=== PATIENT | female | born 1930 | race African-American/Black ===

== ENCOUNTER 2018-08-17 12:47 | Inpatient (IN) | payer MEDICARE ==
[~2018-08-17] VITALS: Ht 160 cm; Wt 54.5 kg
[~2018-08-17 12:47] MED LIST: CLOP75 PO; LABE5VIA3 IVP; METO50 PO; MOM30 PO; NS1000 IV; PANT40TA25 PO; RIVA10 PO; SIMV-260 PO; SULF-168 PO; [UNRECOGNIZED DRUG - CODE] IV
[2018-08-17 13:08] LABS: GLUCOSE,POINT OF CARE 86 MG/DL (70-110)
[2018-08-17] MEDS ORDERED: LOSA50TA25 PO (13:17)
[2018-08-17] MEDS ORDERED: MIRT15 PO (13:17)
[2018-08-17] MEDS ORDERED: FURO40 PO (13:17)
[2018-08-17] MEDS ORDERED: DILT120C48 PO (13:17)
[2018-08-17] MEDS ORDERED: SOTA80 PO (13:17)
[2018-08-17 14:25] LABS: BASOPHILS % (AUTO) 0.9 % (0.0-2.0); EOSINOPHILS % (AUTO) 1.2 % (1.0-6.0); HEMATOCRIT 38.9 % (36-46); HEMOGLOBIN 12.5 g/dL (12.0-16.0); LYMPHOCYTES # (AUTO) 1.1 K/uL (1.0-4.8); LYMPHOCYTES % (AUTO) 25.1 % (22.0-44.0); MEAN CORPUSCULAR HEMOGLOBIN 27.7 pg (26.0-34.0); MEAN CORPUSCULAR VOLUME 87 fL (80-100); MONOCYTES # (AUTO) 0.4 K/uL (0.1-1.0); MONOCYTES % (AUTO) 9.5 % (2.0-9.0); NEUTROPHILS # (AUTO) 2.8 K/uL (1.8-7.7); NEUTROPHILS % (AUTO) 63.3 % (40.0-70.0); PLATELET COUNT (AUTO) 131 K/uL (150-450)
[2018-08-17 14:35] LABS: ANION GAP 10 mmol/L (8-16); CALCIUM, TOTAL 9.4 mg/dL (8.8-10.5); CARBON DIOXIDE 27 mmol/L (22-29); CHLORIDE 106 mmol/L (98-107); CREATININE 1.02 mg/dL (0.60-1.30); GLUCOSE,RANDOM 77 mg/dL (70-110); SODIUM SERUM 143 mmol/L (136-145); UREA NITROGEN, BLOOD 14 mg/dL (7-18)
[2018-08-17 14:36] LABS: GLOMERULAR FILTR. RATE CALC > 60 mL/min (>60)
[2018-08-17 14:47] LABS: B-TYPE NATRIURETIC PEPTIDE 297 pg/mL (0-100)
[2018-08-17 15:00] LABS: ALANINE AMINOTRANSFERASE 13 U/L (12-78); ALBUMIN 3.4 g/dL (3.4-5.0); ALKALINE PHOSPHATASE 91 U/L (46-116); ASPARTATE AMINOTRANSFERASE 23 U/L (15-37); BILIRUBIN,TOTAL 0.6 mg/dL (0.1-1.0); CREATINE KINASE, TOTAL ONLY 83 U/L (26-192); TOTAL PROTEIN, SERUM 7.6 g/dL (6.4-8.2)
[2018-08-17 15:03] LABS: APPEARANCE,URINE CLOUDY (CLEAR); BILIRUBIN,URINE NEGATIVE (NEGATIVE); GLUCOSE, URINE (UA) NEGATIVE (NEGATIVE); KETONES,URINE TRACE mg/dL (NEGATIVE); LEUKOCYTE ESTERASE ,URINE NEGATIVE (NEGATIVE); NITRATE,URINE NEGATIVE (NEGATIVE); OCCULT BLOOD,URINE NEGATIVE (NEGATIVE); PH,URINE 6.5 (5.0-8.0); PROTEIN,URINE NEGATIVE (NEGATIVE)
[2018-08-17] MEDS ORDERED: 0.9% SODIUM CHLORIDE 10 ML SYRINGE IVP PRN (15:30)
[2018-08-17] MEDS ORDERED: ONDANSETRON HCL 4 MG/2 ML VIAL IVP PRN (15:30)
[2018-08-17] MEDS ORDERED: ACETAMINOPHEN 325 MG TABLET PO PRN ×2 (15:30→15:45)
[2018-08-17] MEDS ORDERED: ALBUTEROL SULFATE 2.5 MG/0.5 ML NEB SOLUTION NEB PRN (15:45)
[2018-08-17] MEDS ORDERED: MAGNESIUM HYDROXIDE SUSPENSION 30 ML UDCUP PO PRN (15:45)
[2018-08-17] MEDS ORDERED: ASPIRIN 325 MG TABLET PO SCH (15:45)
[2018-08-17] MEDS: AmLODIPine BESYLATE 10 MG TABLET PO SCH (16:17)
[2018-08-17] MEDS: ATORVASTATIN CALCIUM 40 MG TABLET PO SCH (16:17)
[2018-08-17 17:06] LABS: PROTHROMBIN TIME 10.7 SEC (9.4-11.6)
[2018-08-17 17:22] VITALS: BP 163/95
[2018-08-17] MEDS ORDERED: HEPARIN SODIUM,PORCINE 5,000 UNITS/ML VIAL IVP ONE (17:30)
[2018-08-17] MEDS ORDERED: HEPARIN SODIUM,PORCINE 5,000 UNITS/ML VIAL IVP PRN (17:30)
[2018-08-17] MEDS: HEPARIN SODIUM 25000 UNITS/D5W 250 ML IV PRN (18:31)
[2018-08-17 19:34] VITALS: BP 147/74
[2018-08-17] MEDS: DOCUSATE SODIUM 100 MG CAPSULE PO SCH (20:04)
[2018-08-17] MEDS ORDERED: HEPARIN SODIUM,PORCINE 5,000 UNITS/ML VIAL SQ SCH (21:00)
[2018-08-17 23:35] VITALS: BP 113/51
[2018-08-18 05:07] VITALS: BP 119/94
[2018-08-18 08:09] VITALS: BP 139/73
[2018-08-18] MEDS: ATORVASTATIN CALCIUM 40 MG TABLET PO SCH (08:50)
[2018-08-18] MEDS: DOCUSATE SODIUM 100 MG CAPSULE PO SCH ×2 (08:50→21:00)
[2018-08-18] MEDS: AmLODIPine BESYLATE 10 MG TABLET PO SCH (08:51)
[2018-08-18] MEDS: PANTOPRAZOLE SODIUM 40 MG DR TABLET PO SCH (08:51)
[2018-08-18] MEDS ORDERED: *CLINICAL-WARFARIN SODIUM DOSING CLINICAL ONE (11:15)
[2018-08-18 11:30] VITALS: BP 129/60
[2018-08-18] MEDS ORDERED: WARFARIN SODIUM-INR 2.0-3.0-RX DOSING PER PROTOCOL PO PRN (11:30)
[2018-08-18 16:13] VITALS: BP 137/60
[2018-08-18] MEDS ORDERED: WARFARIN SODIUM 5 MG TABLET PO SCH (17:00)
[2018-08-18 20:00] VITALS: BP 123/75
[2018-08-19 00:22] VITALS: BP 127/61
[2018-08-19] MEDS: HEPARIN SODIUM 25000 UNITS/D5W 250 ML IV PRN ×3 (01:15→23:45)
[2018-08-19 04:12] VITALS: BP 101/53
[2018-08-19 07:31] VITALS: BP 117/75
[2018-08-19 08:58] LABS: BASOPHILS % (AUTO) 0.6 % (0.0-2.0); EOSINOPHILS % (AUTO) 1.2 % (1.0-6.0); HEMATOCRIT 38.1 % (36-46); HEMOGLOBIN 12.6 g/dL (12.0-16.0); LYMPHOCYTES # (AUTO) 1.2 K/uL (1.0-4.8); LYMPHOCYTES % (AUTO) 25.8 % (22.0-44.0); MEAN CORPUSCULAR HEMOGLOBIN 27.9 pg (26.0-34.0); MEAN CORPUSCULAR HGB CONC 33.2 G/dL (31.0-37.0); MEAN CORPUSCULAR VOLUME 84 fL (80-100); MONOCYTES # (AUTO) 0.5 K/uL (0.1-1.0); MONOCYTES % (AUTO) 11.4 % (2.0-9.0); NEUTROPHILS # (AUTO) 2.9 K/uL (1.8-7.7); PLATELET COUNT (AUTO) 141 K/uL (150-450); RED BLOOD CELL COUNT(AUTO) 4.54 MIL/uL (4.00-5.20); RED CELL DISTRIBUTION WIDTH 14.6 % (11.5-14.5)
[2018-08-19] MEDS: AmLODIPine BESYLATE 10 MG TABLET PO SCH (09:04)
[2018-08-19] MEDS: PANTOPRAZOLE SODIUM 40 MG DR TABLET PO SCH (09:04)
[2018-08-19] MEDS: DOCUSATE SODIUM 100 MG CAPSULE PO SCH ×2 (09:04→23:36)
[2018-08-19] MEDS: ATORVASTATIN CALCIUM 40 MG TABLET PO SCH (09:05)
[2018-08-19 09:09] LABS: INR 1.1 (0.9-1.1); PROTHROMBIN TIME 11.5 SEC (9.4-11.6)
[2018-08-19 09:35] LABS: CALCIUM, TOTAL 8.9 mg/dL (8.8-10.5); CREATININE 1.2 mg/dL (0.60-1.30); POTASSIUM 3.8 mmol/L (3.5-5.1)
[2018-08-19 11:06] VITALS: BP 110/65
[2018-08-19 15:28] VITALS: BP 146/68
[2018-08-19] MEDS: HEPARIN SODIUM,PORCINE 5,000 UNITS/ML VIAL IVP PRN ×2 (16:16→23:40)
[2018-08-19] MEDS ORDERED: WARFARIN SODIUM 7.5 MG TABLET PO SCH (17:00)
[2018-08-19 23:48] VITALS: BP 127/64
[2018-08-20 06:42] LABS: INR 1.2 (0.9-1.1); PROTHROMBIN TIME 12.5 SEC (9.4-11.6)
[2018-08-20] MEDS: AmLODIPine BESYLATE 10 MG TABLET PO SCH (08:23)
[2018-08-20] MEDS: PANTOPRAZOLE SODIUM 40 MG DR TABLET PO SCH (08:23)
[2018-08-20] MEDS: DOCUSATE SODIUM 100 MG CAPSULE PO SCH ×2 (08:23→20:36)
[2018-08-20] MEDS: ATORVASTATIN CALCIUM 40 MG TABLET PO SCH (08:23)
[2018-08-20 08:27] VITALS: BP 143/72
[2018-08-20] MEDS: HEPARIN SODIUM 25000 UNITS/D5W 250 ML IV PRN ×2 (08:29→15:44)
[2018-08-20 12:00] VITALS: BP 130/73
[2018-08-20 16:10] VITALS: BP 126/65
[2018-08-20] MEDS: WARFARIN SODIUM 5 MG TABLET PO SCH (18:14)
[2018-08-20 19:21] VITALS: BP 129/58
[2018-08-21 05:05] VITALS: BP 128/74
[2018-08-21 06:54] LABS: BASOPHILS % (AUTO) 0.7 % (0.0-2.0); EOSINOPHILS % (AUTO) 1.1 % (1.0-6.0); HEMATOCRIT 39.8 % (36-46); HEMOGLOBIN 13.4 g/dL (12.0-16.0); LYMPHOCYTES # (AUTO) 1.3 K/uL (1.0-4.8); LYMPHOCYTES % (AUTO) 26.8 % (22.0-44.0); MEAN CORPUSCULAR HEMOGLOBIN 28.5 pg (26.0-34.0); MEAN CORPUSCULAR HGB CONC 33.6 G/dL (31.0-37.0); MEAN CORPUSCULAR VOLUME 85 fL (80-100); MONOCYTES # (AUTO) 0.6 K/uL (0.1-1.0); MONOCYTES % (AUTO) 11.9 % (2.0-9.0); NEUTROPHILS # (AUTO) 2.8 K/uL (1.8-7.7); NEUTROPHILS % (AUTO) 59.5 % (40.0-70.0); PLATELET COUNT (AUTO) 149 K/uL (150-450); RED CELL DISTRIBUTION WIDTH 14.6 % (11.5-14.5)
[2018-08-21 07:08] LABS: CREATININE 1.13 mg/dL (0.60-1.30); POTASSIUM 4.2 mmol/L (3.5-5.1)
[2018-08-21 07:14] LABS: INR 1.9 (0.9-1.1); PROTHROMBIN TIME 19.6 SEC (9.4-11.6)
[2018-08-21 07:26] VITALS: BP 136/70
[2018-08-21] MEDS: DOCUSATE SODIUM 100 MG CAPSULE PO SCH ×2 (08:09→20:25)
[2018-08-21] MEDS: PANTOPRAZOLE SODIUM 40 MG DR TABLET PO SCH (08:09)
[2018-08-21] MEDS: ATORVASTATIN CALCIUM 40 MG TABLET PO SCH (08:09)
[2018-08-21] MEDS: AmLODIPine BESYLATE 10 MG TABLET PO SCH (08:09)
[2018-08-21 12:22] VITALS: BP 119/53
[2018-08-21 15:24] VITALS: BP 123/63
[2018-08-21] MEDS: WARFARIN SODIUM 5 MG TABLET PO SCH (18:11)
[2018-08-21 19:38] VITALS: BP 134/78
[2018-08-21 23:26] VITALS: BP 135/77
[2018-08-22 03:57] VITALS: BP 153/74
[2018-08-22 07:32] LABS: BASOPHILS % (AUTO) 0.7 % (0.0-2.0); EOSINOPHILS % (AUTO) 1.7 % (1.0-6.0); HEMATOCRIT 40.2 % (36-46); HEMOGLOBIN 13.3 g/dL (12.0-16.0); LYMPHOCYTES # (AUTO) 0.9 K/uL (1.0-4.8); MEAN CORPUSCULAR HGB CONC 33.2 G/dL (31.0-37.0); MEAN CORPUSCULAR VOLUME 84 fL (80-100); MONOCYTES # (AUTO) 0.5 K/uL (0.1-1.0); MONOCYTES % (AUTO) 11.3 % (2.0-9.0); NEUTROPHILS # (AUTO) 3.1 K/uL (1.8-7.7); NEUTROPHILS % (AUTO) 67.3 % (40.0-70.0); PLATELET COUNT (AUTO) 138 K/uL (150-450); RED BLOOD CELL COUNT(AUTO) 4.77 MIL/uL (4.00-5.20)
[2018-08-22 07:44] VITALS: BP 130/60
[2018-08-22 07:46] LABS: INR 3.2 (0.9-1.1); PROTHROMBIN TIME 32.4 SEC (9.4-11.6)
[2018-08-22 07:50] LABS: CALCIUM, TOTAL 9.4 mg/dL (8.8-10.5); CREATININE 1.15 mg/dL (0.60-1.30)
[2018-08-22] MEDS: DOCUSATE SODIUM 100 MG CAPSULE PO SCH ×2 (08:16→20:39)
[2018-08-22] MEDS: PANTOPRAZOLE SODIUM 40 MG DR TABLET PO SCH (08:16)
[2018-08-22] MEDS: ATORVASTATIN CALCIUM 40 MG TABLET PO SCH (08:16)
[2018-08-22] MEDS: AmLODIPine BESYLATE 10 MG TABLET PO SCH (08:16)
[2018-08-22] MEDS: HEPARIN SODIUM,PORCINE 5,000 UNITS/ML VIAL IVP PRN (08:20)
[2018-08-22] MEDS: HEPARIN SODIUM 25000 UNITS/D5W 250 ML IV PRN (08:23)
[2018-08-22 11:37] VITALS: BP 123/68
[2018-08-22] MEDS ORDERED: *CLINICAL-WARFARIN SODIUM DOSING CLINICAL ONE (15:00)
[2018-08-22 15:40] VITALS: BP 135/67
[2018-08-22 20:18] VITALS: BP 152/71
[2018-08-23 00:02] VITALS: BP 115/52
[2018-08-23 04:24] VITALS: BP 114/76
[2018-08-23 07:23] VITALS: BP 128/55
[2018-08-23 08:03] LABS: BASOPHILS % (AUTO) 0.4 % (0.0-2.0); EOSINOPHILS % (AUTO) 1.6 % (1.0-6.0); HEMATOCRIT 40.5 % (36-46); HEMOGLOBIN 13.4 g/dL (12.0-16.0); LYMPHOCYTES # (AUTO) 1.6 K/uL (1.0-4.8); LYMPHOCYTES % (AUTO) 29.2 % (22.0-44.0); MEAN CORPUSCULAR HEMOGLOBIN 27.9 pg (26.0-34.0); MEAN CORPUSCULAR HGB CONC 33.1 G/dL (31.0-37.0); MEAN CORPUSCULAR VOLUME 84 fL (80-100); MONOCYTES # (AUTO) 0.8 K/uL (0.1-1.0); MONOCYTES % (AUTO) 13.7 % (2.0-9.0); NEUTROPHILS # (AUTO) 3.1 K/uL (1.8-7.7); NEUTROPHILS % (AUTO) 55.1 % (40.0-70.0); PLATELET COUNT (AUTO) 148 K/uL (150-450); RED BLOOD CELL COUNT(AUTO) 4.81 MIL/uL (4.00-5.20)
[2018-08-23] MEDS: ATORVASTATIN CALCIUM 40 MG TABLET PO SCH (08:09)
[2018-08-23] MEDS: PANTOPRAZOLE SODIUM 40 MG DR TABLET PO SCH (08:09)
[2018-08-23] MEDS: DOCUSATE SODIUM 100 MG CAPSULE PO SCH ×2 (08:09→20:16)
[2018-08-23] MEDS: AmLODIPine BESYLATE 10 MG TABLET PO SCH (08:09)
[2018-08-23 08:10] LABS: INR 3.5 (0.9-1.1); PROTHROMBIN TIME 35.2 SEC (9.4-11.6)
[2018-08-23 08:13] LABS: CALCIUM, TOTAL 9.2 mg/dL (8.8-10.5); CREATININE 1.17 mg/dL (0.60-1.30); POTASSIUM 4.4 mmol/L (3.5-5.1)
[2018-08-23 11:52] VITALS: BP 107/60
[2018-08-23] MEDS ORDERED: WARFARIN SODIUM 2.5 MG TABLET PO SCH (17:00)
[2018-08-23 19:42] VITALS: BP 147/91
[2018-08-24 00:30] VITALS: BP 125/72
[2018-08-24 05:57] LABS: INR 2.5 (0.9-1.1)
[2018-08-24 07:31] VITALS: BP 141/87
[2018-08-24] MEDS: AmLODIPine BESYLATE 10 MG TABLET PO SCH (08:01)
[2018-08-24] MEDS: DOCUSATE SODIUM 100 MG CAPSULE PO SCH (08:01)
[2018-08-24] MEDS: ATORVASTATIN CALCIUM 40 MG TABLET PO SCH (08:02)
[2018-08-24] MEDS: PANTOPRAZOLE SODIUM 40 MG DR TABLET PO SCH (08:02)
[2018-08-24] MEDS ORDERED: FURO40 PO (13:59)
[2018-08-24] MEDS ORDERED: ATOR40TA28 PO ×2 (14:00→16:56)
[2018-08-24] MEDS ORDERED: AMLO-512 PO ×2 (14:00→16:56)
[2018-08-24] MEDS ORDERED: WARF2 PO (14:01)
[2018-08-24 15:50] VITALS: BP 148/85
[2018-08-24] MEDS ORDERED: WARF5 PO (16:56)
[2018-08-24] MEDS ORDERED: CIPR-278 PO ×3 (16:59→17:01)
[2018-08-24] MEDS ORDERED: WARFARIN SODIUM 2 MG TABLET PO SCH (17:00)
[2018-08-24 17:29] LABS: APPEARANCE,URINE CLOUDY (CLEAR); BILIRUBIN,URINE NEGATIVE (NEGATIVE); GLUCOSE, URINE (UA) NEGATIVE (NEGATIVE); KETONES,URINE TRACE mg/dL (NEGATIVE); LEUKOCYTE ESTERASE ,URINE LARGE (NEGATIVE); NITRATE,URINE NEGATIVE (NEGATIVE); OCCULT BLOOD,URINE NEGATIVE (NEGATIVE); PROTEIN,URINE TRACE (NEGATIVE)
[2018-08-24 17:48] LABS: BACTERIA,URINE Moderate /HPF (None Seen); RBC,URINE None Seen /HPF (0-2); SQUAMOUS EPITHELIAL CELL,UR Few /LPF (None Seen)
== END 2018-08-24 18:50 | disposition home or self-care (01) | DRG 282 ==
LOC: EMS 12:48 → 5S 16:04
PROVIDERS: ADMIT Internal Medicine; ATTEND Internal Medicine
DX: I21.4 Non-ST elevation (NSTEMI) myocardial infarction (principal); I49.5 Sick sinus syndrome; I11.9 Hypertensive heart disease without heart failure; F03.90 Unspecified dementia, unspecified severity, without behavioral disturbance, psychotic disturbance, mood disturbance, and anxiety; I48.91 Unspecified atrial fibrillation; I51.3 Intracardiac thrombosis, not elsewhere classified; Z79.01 Long term (current) use of anticoagulants; Z82.49 Family history of ischemic heart disease and other diseases of the circulatory system; Z86.73 Personal history of transient ischemic attack (TIA), and cerebral infarction without residual deficits; Z95.0 Presence of cardiac pacemaker
CPT/HCPCS: 51701; 82271; 87086; 92610; 93005; 93306; 97110; 97116; 97162; 97530; G0378; J1644

== ENCOUNTER 2018-12-15 19:02 | Emergency (ER) | payer MEDICARE ==
[~2018-12-15] VITALS: Ht 167.6 cm; Wt 62.0 kg
[~2018-12-15 19:02] MED LIST changes: +AMLO-512 PO; +ATOR40TA28 PO; +CIPR-278 PO; -CLOP75 PO; +FURO40 PO; -LABE5VIA3 IVP; -METO50 PO; +MIRT15 PO; -MOM30 PO; -NS1000 IV; -PANT40TA25 PO; -RIVA10 PO; -SIMV-260 PO; -SULF-168 PO; +WARF5 PO; -[UNRECOGNIZED DRUG - CODE] IV
[2018-12-15] MEDS ORDERED: DILT120C48 PO (19:11)
[2018-12-15] MEDS ORDERED: RIVA20TA PO (19:11)
[2018-12-15] MEDS ORDERED: SOTA160T PO (19:11)
[2018-12-15] MEDS ORDERED: ATOR20TA86 PO (19:11)
[2018-12-15] MEDS ORDERED: CLOP75TA17 PO (19:11)
[2018-12-15] MEDS ORDERED: LOSA50TA64 PO (19:11)
[2018-12-15 19:43] LABS: BASOPHILS % (AUTO) 0.9 % (0.0-2.0); HEMATOCRIT 39.6 % (36-46); HEMOGLOBIN 12.8 g/dL (12.0-16.0); LYMPHOCYTES # (AUTO) 0.5 K/uL (1.0-4.8); LYMPHOCYTES % (AUTO) 18.3 % (22.0-44.0); MEAN CORPUSCULAR HEMOGLOBIN 26.5 pg (26.0-34.0); MEAN CORPUSCULAR HGB CONC 32.4 G/dL (31.0-37.0); MEAN CORPUSCULAR VOLUME 82 fL (80-100); MONOCYTES # (AUTO) 0.2 K/uL (0.1-1.0); NEUTROPHILS % (AUTO) 72.8 % (40.0-70.0); PLATELET COUNT (AUTO) 135 K/uL (150-450); RED BLOOD CELL COUNT(AUTO) 4.85 MIL/uL (4.00-5.20); RED CELL DISTRIBUTION WIDTH 14.7 % (11.5-14.5)
[2018-12-15 19:51] LABS: ANION GAP 10 mmol/L (8-16); CALCIUM, TOTAL 10.3 mg/dL (8.8-10.5); CARBON DIOXIDE 25 mmol/L (22-29); CHLORIDE 111 mmol/L (98-107); GLOMERULAR FILTR. RATE CALC > 60 mL/min (>60); GLUCOSE,RANDOM 108 mg/dL (70-110); POTASSIUM 3.8 mmol/L (3.5-5.1); SODIUM SERUM 146 mmol/L (136-145); UREA NITROGEN, BLOOD 23 mg/dL (7-18)
[2018-12-15 19:57] LABS: ALANINE AMINOTRANSFERASE 54 U/L (12-78); ALKALINE PHOSPHATASE 134 U/L (46-116); ASPARTATE AMINOTRANSFERASE 53 U/L (15-37); BILIRUBIN,TOTAL 0.5 mg/dL (0.1-1.0); TOTAL PROTEIN, SERUM 7.4 g/dL (6.4-8.2)
[2018-12-15 20:06] LABS: PLATELET MORPHOLOGY COMMENT DECREASED
[2018-12-15 20:08] LABS: GLUCOSE,POINT OF CARE 108 MG/DL (70-110)
[2018-12-15] MEDS ORDERED: SODIUM CHLORIDE 0.9% 1,000 ML IV ONE ×2 (20:30→23:30)
[2018-12-15 21:20] LABS: INR 1.1 (0.9-1.1); PROTHROMBIN TIME 11.3 SEC (9.4-11.6)
[2018-12-15 21:23] LABS: LACTIC ACID 0.9 mmol/L (0.4-2.0)
[2018-12-15] MEDS ORDERED: CefTRIAXone 1 GM/DEXTROSE 50 ML IV ONE (23:15)
[2018-12-15] MEDS ORDERED: AZITHROMYCIN 250 MG TABLET PO ONE (23:15)
[2018-12-15] MEDS ORDERED: FUROSEMIDE 40 MG/4 ML VIAL IVP ONE (23:15)
[2018-12-16 01:32] LABS: APPEARANCE,URINE CLOUDY (CLEAR); BILIRUBIN,URINE NEGATIVE (NEGATIVE); GLUCOSE, URINE (UA) NEGATIVE (NEGATIVE); KETONES,URINE NEGATIVE (NEGATIVE); LEUKOCYTE ESTERASE ,URINE SMALL (NEGATIVE); NITRATE,URINE NEGATIVE (NEGATIVE); OCCULT BLOOD,URINE LARGE (NEGATIVE); PROTEIN,URINE NEGATIVE (NEGATIVE)
[2018-12-16 01:37] LABS: RBC,URINE 26-50 /HPF (0-2)
[2018-12-16 01:38] LABS: BACTERIA,URINE Moderate /HPF (None Seen); SQUAMOUS EPITHELIAL CELL,UR Few /LPF (None Seen)
[2018-12-16 03:47] VITALS: BP 123/69
== END 2018-12-16 03:59 | disposition short-term general hospital (02) ==
LOC: EMS 19:03
DX: A41.9 Sepsis, unspecified organism (principal); I50.9 Heart failure, unspecified; E86.0 Dehydration; J18.9 Pneumonia, unspecified organism
CPT/HCPCS: 36415; 70450; 71045; 80053; 81001; 82962; 83605; 83690; 83880; 84484; 85025; 85610; 85730; 87040; 87086; 93005; 96361; 96365; 96375; 99285; J0696; J1940; J7030; 51702